=== PATIENT | male | born 1940 | race Caucasian/White ===

== ENCOUNTER 2017-09-10 13:25 | Observation (INO) ==
--- NOTE | 2017-09-10 13:49 | EKG ---
[address] [address] Measurements Intervals [place] Rate: 80 P: 39 AK: 128 QRS: 43 QRSD: 86 T: 67 QT: 394 QTc: 431 Interpretive Statements SINUS RHYTHM NONSPECIFIC ST & T-WAVE ABNORMALITY No previous ECG available for comparison Electronically Signed On 09-10-17 17:26:56 MDT by Deon Gill [email or web address]
[2017-09-10] MEDS ORDERED: Sodium Chloride 0.9% 1,000 ML PRIMARY IV ONE (14:23)
[2017-09-10] MEDS ORDERED: IPRATROPIUM/ALBUTEROL SULFATE 3 ML NEB NEB ONE (14:23)
[2017-09-10] MEDS ORDERED: predniSONE Tab 20 MG TAB PO ONE (14:23)
[2017-09-10] MEDS ORDERED: methylPREDNISolone 125 MG/2 ML VIAL IVP ONE (14:28)
[2017-09-10 15:07] LABS: BASOPHILS # (AUTO) 0.05 10*3/UL; BASOPHILS % (AUTO) 0.7 % (0-1); EOSINOPHILS # (AUTO) 0.19 10*3/UL; EOSINOPHILS % (AUTO) 2.5 % (0-8); Hematocrit [HCT] 38.1 % (42.0-52.0); Hemoglobin [HGB] 13.1 g/dL (14.0-18.0); LYMPHOCYTES # (AUTO) 1.42 10*3/uL; MEAN CORPUSCULAR HEMOGLOBIN 30.8 PG (27-31); MEAN CORPUSCULAR HGB CONC 34.4 g/dL (33-37); MEAN CORPUSCULAR VOLUME 89.6 FL (80-90); MEAN PLATELET VOLUME 9.3 FL (7.4-12.2); MONOCYTES # (AUTO) 0.62 10*3/UL (0.3-0.8); MONOCYTES % (AUTO) 8.1 % (5-15); NEUTROPHILS # (AUTO) 5.34 10*3/UL; RED BLOOD COUNT 4.25 10^6/uL (4.70-6.10)
[2017-09-10 15:18] LABS: BLOOD UREA NITROGEN 18 mg/dL (7-22); SERUM ALBUMIN 3.9 g/dL (3.5-4.8)
--- NOTE | 2017-09-10 15:24 | DI ---
PA /LATERAL CHEST, 09/10/2017 2:23 PM : Clinical History: Dyspnea. Previous Exam: None at this facility. There is no acute soft tissue or bony abnormality. There is mild cardiomegaly. CHF is difficult to as sess because of underlying interstitial disease. There is no acute infiltrate or effusion. A moderate size hiatal hernia is present. There are no pulmonary nodules. Readin. There is a diffuse chronic interstitial pattern present bilaterally. No acute infiltrate or effus ion is present. 2. There is mild cardiomegaly. Assessment for CHF is difficult because of the underlying interstitia l disease. 3. Moderate sized hiatal hernia.
[2017-09-10 15:31] LABS: PLATELET MORPHOLOGY COMMENT NORMAL MORPHOLOGY (NORM); RBC MORPHOLOGY COMMENT NORMAL MORPHOLOGY (NORM); WBC MORPHOLOGY COMMENT NORMAL MORPHOLOGY (NORM)
[2017-09-10 15:49] LABS: VENOUS PH 7.41 (7.32-7.42)
[2017-09-10] MEDS ORDERED: FUROSEMIDE 10 MG/1 ML - 4 ML IVP ONE (16:04)
[2017-09-10 17:24] LABS: BILIRUBIN,URINE NEGATIVE (NEG); CLARITY,URINE CLEAR (CLEAR); COLOR,URINE YELLOW (Y); GLUCOSE, URINE (UA) NEGATIVE (NEG); OCCULT BLOOD,URINE SMALL (NEG); PH,URINE 6.5 (5.0-8.5); PROTEIN,URINE NEGATIVE (NEG); UROBILINOGEN,URINE 0.2 EU/dL (0.2)
[2017-09-10 17:33] LABS: URINE SAMPLE TYPE CLEAN CATCH URINE
--- NOTE | 2017-09-10 19:13 | PDOC ---
HPI - History of Present Illness Date of Service: 09/10/17 Time of Service: 19:00 Chief Complaint: Shortness of breath of about 1 week duration History of Present Illness: This is a 77 years old male with medical history significant for history of hypertension, paroxysmal atrial fibrillation, BPH and history of pulmonary fibrosis who presented to the hospital with history of shortness of breath that is being going on for about a week. It is progressive with exertion. Denied PND's and denied orthopnea. Because of the shortness of breath he came into the ER x-ray and CT showed pulmonary fibrosis he also had an elevation of his BNP was giving Lasix and steroid and was admitted. He was hypoxic when he came into the ER about a84 and he needed 4 L of oxygen. Currently he said he feels better his oxygen sat numbers seems to be better and he feels the shortness of breath also improved. He said he was on oxygen mainly at night but was discontinued back in December. He lives in [place] been followed up by a production planner scheduler and floor nurse. Past Medical History Medical History: 1. Hypertension. 2. History of A. fib. 3. History of pulmonary fibrosis. 4. BPH. 5. Hyperlipidemia. 6. Hiatal hernia Surgical History: History of appendectomy. History of hernia surgery Family History: Reviewed an Not Pertinent Past Social History: He lives in [place] and he's been here since Saturday and plan to go back home on Saturday. He used to smoke and quit in 1978. Now on some of maybe smokes the cigar. Drinks occasionally. No drugs. In the Past 12 Months, Have Used or Abuse Any of the Following Substance: None Alcohol Use: Occasionally Medication / Allergies Home Medications: Home Medications 3 Medication Instructions Recorded Confirmed Type Acetaminophen [Tylenol] 1,000 mg PO QHS PRN 09/10/17 09/10/17 History Ascorbic Acid [Vitamin C] 1,000 mg PO DAILY 09/10/17 09/10/17 History Aspirin 81 mg PO DAILY 09/10/17 09/10/17 History Cholecalciferol [Vitamin D] 1,000 unit PO DAILY 09/10/17 09/10/17 History Lisinopril 2.5 mg PO DAILY 09/10/17 09/10/17 History Loratadine [Claritin] 10 mg PO DAILY 09/10/17 09/10/17 History Lovastatin 20 mg PO DAILY 09/10/17 09/10/17 History Lysine 500 mg PO DAILY 09/10/17 09/10/17 History Metoprolol Tartrate 12.5 mg PO BID 09/10/17 09/10/17 History Omeprazole 20 mg PO DAILY 09/10/17 09/10/17 History Psyllium Husk [Metamucil] 2 cap PO DAILY 09/10/17 09/10/17 History Rivaroxaban [Xarelto] 20 mg PO DAILY 09/10/17 09/10/17 History Terazosin HCl 4 mg PO QHS 09/10/17 09/10/17 History Allergies/Adverse Reactions: Allergies 3 Allergy/AdvReac Type Severity Reaction Status Date / Time Sulfa (Sulfonamide AdvReac ITCHING Verified 09/11/17 06:59 Antibiotics) Review of Systems - Review of Systems All Systems: Reviewed & No Additional Complaints Except as Stated Exam - Vitals Vital Signs: Vital Signs Temperature 97.3 F Temperature Source Temporal Artery Scan Pulse Rate [Apical] 80 Pulse Rate [Pulse Oximeter] 84 Pulse Rate 86 Respiratory Rate 16 Blood Pressure [Left Arm] 127/56 Blood Pressure 149/70 Pulse Ox 96 Oxygen Flow Rate 4 Oxygen Delivery Method Nasal Cannula Height 5 ft 9 in Weight 165 lb 4 oz - General General Appearance: No Acute Distress, Cooperative - Head Head Exam: Normal Inspection - Eye Eye Exam: POSITIVE: Normal Appearance - ENT ENT Exam: POSITIVE: Normal Exam - Neck Neck Exam: Normal Inspection - Respiratory Additional Respiratory Exam Details: Bilateral crackles at lower third of the lung bases - Cardiovascular Cardiovascular Exam: POSITIVE: RRR - GI/Abdominal GI/Abdominal Exam: POSITIVE: Normal Bowel Sounds, Non Tender, Non Distended, No Organomegaly - Rectal Rectal Exam: POSITIVE: Deferred - External Exam: POSITIVE: Deferred Exam: POSITIVE: Deferred - Extremities Extremities Exam: POSITIVE: Normal Inspection - Back Back Exam: POSITIVE: Normal Inspection - Neurological Neurological Exam: POSITIVE: Alert, Oriented x 3, CN II-XII Intact, No Facial Droop, Speech Intact / Clear, Moves All Extremities Equally - Psychiatric Psychiatric Exam: POSITIVE: Normal Affect Results - Labs CBC and BMP: 09/10/17 15:03 09/10/17 15:03 - EKG Data -: EKG Interpreted by Me Rate: Normal EKG Shows Normal: Sinus Rhythm (EKG showed nonspecific ST changes) - Imaging Status: Report Reviewed by Me (Chest X ray 1. There is a diffuse chronic interstitial pattern present bilaterally. No acute infiltrate or effusion is present. 2. There is mild cardiomegaly. Assessment for CHF is difficult because of the underlying interstitial disease. 3. Moderate sized hiatal hernia. CT chest pending put to me showed bilateral effusion with interstitial changes) Assessment and Plan - Patient Problems (1) Shortness of breath Current Visit: Yes Status: Acute Comment: Looks predominantly secondary to the pulmonary fibrosis. He is already on oxygen. He was giving steroid in the ER. I think we'll continue with oxygen continue with Lasix and will order an echocardiogram for him tomorrow. May speak with his floor nurse and see his opinion about continuing steroid or not. Code(s): R06.02 - Shortness of breath (2) Paroxysmal A-fib Current Visit: Yes Status: Acute Comment: Continue metoprolol and Xarelto. Code(s): I48.0 - Paroxysmal atrial fibrillation (3) Hypertension Current Visit: Yes Status: Acute Comment: Continue lisinopril Code(s): I10 - Essential (primary) hypertension (4) BPH (benign prostatic hyperplasia) Current Visit: Yes Status: Acute Comment: Continue terazosin Code(s): N40.0 - Benign prostatic hyperplasia without lower urinary tract symptoms
[2017-09-10] MEDS ORDERED: LIDOCAINE W/ SODIUM BICARB 0.5 ML SYR SUBD PRN (19:50)
[2017-09-10] MEDS ORDERED: CALCIUM CARBONATE 500 MG (TUMS) CHEWABLE TABLET PO PRN (19:50)
[2017-09-10] MEDS ORDERED: Rivaroxaban Tab 10 MG TAB PO ONE (20:20)
[2017-09-10] MEDS: Metoprolol TARTRATE Tab 25 MG TAB PO SCH (20:21)
[2017-09-10] MEDS ORDERED: TERAZOSIN 2 MG PO SCH (21:00)
--- NOTE | 2017-09-10 22:41 | DI ---
CT ANGIOGRAM OF THE CHEST, 09/10/2017 4:03 PM : Clinical History: Dyspnea. Elevated D-dimer test. Previous Exam: None at this facility. Scans are performed from the base of the neck to the lower lung bases with IV contrast. 65 mL of Isov ue 370 was injected IV. Proprietary automated bolus tracking software was used to verify the timing o f the injection. The base of the neck and thoracic inlet are normal. There are no abnormal axillary, supraclavicular, or hilar nodes. There are multiple borderline enlarged lymph nodes in the mediastinum with one right- sided mediastinal lymph node measuring 22 x 15 x 15 mm. There is right atrial and ventricular dilatat ion with left atrial enlargement. The apex of the left ventricle is blunted with low density tissue i n the endocardium of the apex. These changes are suspicious for a previous subendocardial infarction. Extensive vascular calcifications are present in all of the entire length of the LAD and the proxima l half of the left circumflex artery and almost all of the right coronary artery. There is also a eliseo cified plaque probably in the pericardium on the left side suggesting asbestosis. There is marked pul monary arterial hypertension without evidence of pulmonary embolism or pulmonary embolism with infarc tion. The trachea and the right and left mainstem bronchi are markedly dilated. There is no acute lob ar pneumonia but there are patchy areas of alveolar infiltrates bilaterally primarily in the posterio r aspect of the lungs. Aspiration is not certain as being the etiology for these patchy densities. Ke r[place] A and B lines are present and with the cardiomegaly and pleural effusions, some of the interstit ial changes may be secondary to CHF as well as 2 chronic interstitial pulmonary fibrosis. Bullae are present in the upper lobes. There are punctate calcifications in the spleen consistent with prior exp osure to either TB or histoplasmosis. The spleen is otherwise normal as are the adrenal glands. The l imited views of the pancreas and liver are also normal. There is a large hiatal hernia. READIN. There is marked pulmonary arterial hypertension without evidence of pulmonary embolism. Marked di latation of the right atrium and right ventricle is present along with marked dilatation of the left atrium. The left ventricle is blunted in the apical region with low density tissue in the region of t he endocardium raising the possibility of a prior subendocardial infarct in the distal LAD distributi on. 2. There is evidence of chronic interstitial lung disease and with the presence of bilateral pleural effusions, this patient may have CHF superimposed on the interstitial pattern. There are patchy dens ities in both lungs of uncertain etiology. The bronchi are markedly dilated. 3. There is mild adenopathy involving the mediastinum without hilar adenopathy. 4. Calcification of the left side of the pericardium suggesting asbestosis. Punctate calcifications are present in the spleen consistent with previous exposure to either TB or histoplasmosis. 5. Extensive 3 vessel coronary artery disease.
--- NOTE | 2017-09-11 01:29 | PDOC ---
Dyspnea HPI - General Chief Complaint: Respiratory Complaint Stated Complaint: SHORTNESS OF BREATH Date Seen by Provider: 09/10/17 Time Seen by Provider: 13:45 Source: POSITIVE: Patient, Spouse Exam Limitations: POSITIVE: No limitations Treatment Prior to Arrival: REPORTS: None Nurse's Notes Reviewed & Considered: Yes - History of Present Illness Initial Comments: The patient is a 77-year-old male who lives in [place]. He has are in [place] [facility]. He states that for the past 3-4 days he has had progressive dyspnea with exertion. He states that today he can walk only about 100 yards without having to stop to rest. He denies any chest or abdominal pain. No fevers or cough. Patient states that he has a history of atrial fibrillation and he states he has "2 leaky heart valve" he states that he sees a diamond sizer and sorter in [place] and that the diamond sizer and sorter has informed him that his "valves are bad enough to do anything at this time". He also has a history of "some type of lung problem" and he also sees a project officer in [place] twice a year. No hemoptysis. Patient is not on oxygen at home. On the patient's arrival to the emergency room his oxygen saturation was 81% on room air. On 4 L his oxygen saturation was 93%. Body Location Affected: REPORTS: Chest (Dyspnea) Timing: REPORTS: Gradual, Getting Worse Duration: >1 week Severity: Moderate Quality: REPORTS: Other (Patient denies any pain anywhere) Initiating Event: DENIES: Upper Respiratory Illness, Out of Medications, Sports , Exercise, Aspiration, Choking, Allergy, Exposure - Smoke, Exposure - Mold, Exposure - Other Allergen Context: REPORTS: Activity Exacerbated By: REPORTS: Exertion Associated Symptoms: DENIES: Fever, Chills, Sweating, Chest Pain, Chest Discomfort, Left Chest, Right Chest, Central Chest, Chest Heaviness, Chest Tightness, Painful Breathing, Radiation to Back, Radiation to Jaw, Radiation to Arm, Bloody Cough, Productive Cough, Heart Racing, Leg Pain, Calf Pain, Ankle Swelling, Leg Swelling, Dizziness, Light-Headedness, Anxiety, Tingling - Hands, Tingling - Face, Muscle Spasms - Hands, Muscle Spasms - Feet Similar Symptoms Previously: No Recently seen/treated/hospitalized: No Any Prior Injuries Related to Current Complaint?: No - Patient Home Medications Home Medications: Home Medications Acetaminophen [Tylenol] 1,000 mg PO QHS PRN 09/10/17 Ascorbic Acid [Vitamin C] 1,000 mg PO DAILY 09/10/17 Aspirin 81 mg PO DAILY 09/10/17 Cholecalciferol [Vitamin D] 1,000 unit PO DAILY 09/10/17 Lisinopril 2.5 mg PO DAILY 09/10/17 Loratadine [Claritin] 10 mg PO DAILY 09/10/17 Lovastatin 20 mg PO DAILY 09/10/17 Lysine 500 mg PO DAILY 09/10/17 Metoprolol Tartrate 12.5 mg PO BID 09/10/17 Omeprazole 20 mg PO DAILY 09/10/17 Psyllium Husk [Metamucil] 2 cap PO DAILY 09/10/17 Rivaroxaban [Xarelto] 20 mg PO DAILY 09/10/17 Terazosin HCl 4 mg PO QHS 09/10/17 - Patient Allergies Allergies/Adverse Reactions: Allergies 3 Allergy/AdvReac Type Severity Reaction Status Date / Time Sulfa (Sulfonamide AdvReac ITCHING Verified 09/10/17 18:55 Antibiotics) Past Medical History - heen HEENT History: Other (please comment) Additional HEENT History: WEARS GLASSES Cardiovascular History: Hypertension, Arrhythmia, Valvular Heart Disease, Hyperlipidemia, Other (please comment) Additional Cardiovasular History: ATRIAL FIBRILLATION Respiratory History: COPD Gastrointestinal History: GERD Genitourinary History: Denies History Endocrine History: Denies History Musculoskeletal History: Denies History Prosthesis or Implant: No Neurological History: Denies History Blood Disorders: Denies History Psychiatric History: Denies History History of Sexually Transmitted Diseases: No Male Reproductive History: BPH Cancer History: Denies History In Past Year Been Physically Harmed or Verbally Threatened: No History of MDRO: No History of Other Communicable Diseases: No Tobacco Use: Never Smoker Type of alcohol normally used: Hard Liquor In the Past 12 Months, Have Used or Abuse Any Substance: None Previous Surgical History: Yes Type / Date of Surgery: APPENDECTOMY, HERNIA REPAIR Anesthesia Reactions: No Malignant Hyperthermia: No Family History of Malignant Hyperthermia: No Significant Family History: No pertinent family hx Past Medical History Reviewed: Reviewed - No Changes ROS - Limitations ROS Limitations: No Limitations Constitution: REPORTS: Denies Symptoms Cardiovascular: REPORTS: Denies Cardiac Symptoms Respiratory: REPORTS: Shortness Of Breath Neurological: REPORTS: Denies Neuro Symptoms Gastrointestinal: REPORTS: Denies GI Symptoms Endocrine: REPORTS: Denies Symptoms Musculoskeletal: REPORTS: Denies MS Symptoms Genitourinary: REPORTS: Denies Symptoms Eyes: REPORTS: Denies Symptoms ENT: REPORTS: Denies Symptoms Skin: REPORTS: Denies Skin Symptoms Lympathic: REPORTS: Denies Lympathic Symptoms Immunologic: POSITIVE: Denies Symptoms Psychiatric: POSITIVE: Denies Psych Symptoms Dyspnea Physical Exam - General Appearance General Appearance: REPORTS: Alert, Cooperative, No Acute Distress, No Evidence of Trauma - HEENT HEENT: POSITIVE: Head Inspection Nml, Eyes Inspection Nml, Ears Inspection Nml, Nose Inspection Nml, Oral/Dental Inspect. Nml, Pharynx Inspect. Nml, PERRL, EOMI - Neck Neck: REPORTS: Normal Inspection, No Carotid Bruit - Respiratory Respiratory: REPORTS: No Respiratory Distress, No Pleuritic Chest Pain, Speaks Full Sentences, No Pain on Inspiration, Rales. DENIES: Breath Sounds Normal ( Diffuse rales/crackles), Respiratory Distress, Fatigue - Cardiovascular Cardiovascular: REPORTS: Regular Rate and Rhythm, Equal Pulses, Strong Pulses, No Murmur, No Gallop, No Friction Rub, No JVD, Murmur (1/6 systolic ejection murmur over the precordium), Friction Rub, Miky's Crunch, Bilat BPs Asymmetrical. DENIES: Heart Sounds Normal (Grade 1/6 systolic ejection murmur over the precordium), Irregularly Irreg Rhythm, Tachycardia, Bradycardia, Occasional Extrasystoles, Frequent Extrasystoles, JVD Present, S3 Gallop, S4 Gallop Peripheral Pulses: Radial (R): 2+, Radial (L): 2+ Murmur: Systolic: Grade 1 - Abdomen Abdomen: Soft: (All Quadrants), Normal Bowel Sounds: (All Quadrants), Denies Tenderness: (All Quadrants), No Splenomegaly: (All Quadrants), No Hepatomegaly: (All Quadrants), No Guarding: (All Quadrants), No Rebound: (All Quadrants), No Palpable Pulse: (All Quadrants), No Palpabale Mass: (All Quadrants), No Distention: (All Quadrants), No Rigidity: (All Quadrants) - Skin Skin: REPORTS: Intact, Normal For Race, Warm, Dry, No Rash - Extremities Extremity: Non-Tender: (All Extremities), Normal ROM: (All Extremities), Normal Inspection: (All Extremities) - Neurological / Psychological Neurological: POSITIVE: Affect Apporpriate, Oriented X3, lace roller Normal As Tested, Motor Normal, Sensation Normal Dyspnea Progress - Results Reviewed by me Xrays/CTs/US Reviewed by me: Yes Discussed with Radiologist: Yes Radiology Findings: Chest x-ray shows diffuse interstitial pattern. CTA of the chest shows dilated right atrium and mitral valve disease with pulmonary fibrosis and congestive heart failure. Lab Results Reviewed by Me: Yes (BNP PE 1190; troponin 0.013 d-dimer 0.62) CBC and BMP: 09/10/17 15:03 09/10/17 15:03 Lab Results:: Laboratory Results 3 09/10/17 09/10/17 09/10/17 15:03 15:03 15:03 WBC 7.63 RBC 4.25 L Hgb 13.1 L Hct 38.1 L MCV 89.6 MCH 30.8 MCHC 34.4 RDW Std Deviation 44.0 RDW Coeff of Eder 13.8 Plt Count 235 MPV 9.3 Immature Gran % (Auto) 0.1 Neut % (Auto) 70.0 Lymph % (Auto) 18.6 [place] % (Auto) 8.1 Eos % (Auto) 2.5 Baso % (Auto) 0.7 Immature Gran # (Auto) 0.01 Neut # (Auto) 5.34 Lymph # (Auto) 1.42 [place] # (Auto) 0.62 Eos # (Auto) 0.19 Baso # (Auto) 0.05 WBC Morphology Comment Normal morphology Plt Morphology Comment Normal morphology RBC Morph Comment Normal morphology D-Dimer VBG pH VBG pCO2 VBG HCO3 VBG Base Excess Sodium Potassium Chloride Carbon Dioxide Anion Gap BUN Creatinine BUN/Creatinine Ratio Glucose Calculated Osmolality Calcium Total Bilirubin AST ALT Alkaline Phosphatase Troponin I 0.013 C-Reactive Protein 3.1 H NT-Pro-B Natriuret Pep 1190 H Total Protein Albumin Globulin Albumin/Globulin Ratio Ur Collection Type Urine Color Urine Clarity Urine pH Ur Specific [place] Urine Protein Urine Glucose (UA) Urine Ketones Urine Occult Blood Urine Nitrate Urine Bilirubin Urine Urobilinogen Ur Leukocyte Esterase Urine RBC Urine WBC Ur Squamous Epith Cells Ur Renal Epithelial Cell Urine Crystals Urine Bacteria Urine Casts Urine Mucus Urine Trichomonas Urine Yeast Ur Culture Indicated? 3 09/10/17 09/10/17 09/10/17 15:03 15:03 15:12 WBC RBC Hgb Hct MCV MCH MCHC RDW Std Deviation RDW Coeff of Eder Plt Count MPV Immature Gran % (Auto) Neut % (Auto) Lymph % (Auto) [place] % (Auto) Eos % (Auto) Baso % (Auto) Immature Gran # (Auto) Neut # (Auto) Lymph # (Auto) [place] # (Auto) Eos # (Auto) Baso # (Auto) WBC Morphology Comment Plt Morphology Comment RBC Morph Comment D-Dimer 0.62 H VBG pH 7.41 VBG pCO2 35 L VBG HCO3 22 VBG Base Excess -3 L Sodium 142 Potassium 3.6 L Chloride 108 Carbon Dioxide 22 L Anion Gap 12 BUN 18 Creatinine 0.8 BUN/Creatinine Ratio 22.50 H Glucose 144 H Calculated Osmolality 298.0 H Calcium 8.7 Total Bilirubin 0.7 AST 36 ALT 26 Alkaline Phosphatase 54 Troponin I C-Reactive Protein NT-Pro-B Natriuret Pep Total Protein 7.0 Albumin 3.9 Globulin 3.1 Albumin/Globulin Ratio 1.20 L Ur Collection Type Urine Color Urine Clarity Urine pH Ur Specific [place] Urine Protein Urine Glucose (UA) Urine Ketones Urine Occult Blood Urine Nitrate Urine Bilirubin Urine Urobilinogen Ur Leukocyte Esterase Urine RBC Urine WBC Ur Squamous Epith Cells Ur Renal Epithelial Cell Urine Crystals Urine Bacteria Urine Casts Urine Mucus Urine Trichomonas Urine Yeast Ur Culture Indicated? 3 09/10/17 16:50 WBC RBC Hgb Hct MCV MCH MCHC RDW Std Deviation RDW Coeff of Eder Plt Count MPV Immature Gran % (Auto) Neut % (Auto) Lymph % (Auto) [place] % (Auto) Eos % (Auto) Baso % (Auto) Immature Gran # (Auto) Neut # (Auto) Lymph # (Auto) [place] # (Auto) Eos # (Auto) Baso # (Auto) WBC Morphology Comment Plt Morphology Comment RBC Morph Comment D-Dimer VBG pH VBG pCO2 VBG HCO3 VBG Base Excess Sodium Potassium Chloride Carbon Dioxide Anion Gap BUN Creatinine BUN/Creatinine Ratio Glucose Calculated Osmolality Calcium Total Bilirubin AST ALT Alkaline Phosphatase Troponin I C-Reactive Protein NT-Pro-B Natriuret Pep Total Protein Albumin Globulin Albumin/Globulin Ratio Ur Collection Type Clean catch urine Urine Color Yellow Urine Clarity Clear Urine pH 6.5 Ur Specific [place] 1.010 Urine Protein Negative Urine Glucose (UA) Negative Urine Ketones Negative Urine Occult Blood Small H Urine Nitrate Negative Urine Bilirubin Negative Urine Urobilinogen 0.2 Ur Leukocyte Esterase Negative Urine RBC 1-3 Urine WBC None Ur Squamous Epith Cells None Ur Renal Epithelial Cell None Urine Crystals None Urine Bacteria None Urine Casts None Urine Mucus None Urine Trichomonas None Urine Yeast None Ur Culture Indicated? Culture not set EKG Interpreted/Reviewed By Me:: Yes (normal) EKG Interpretation:: POSITIVE: Normal Sinus Rhythm, Normal Rate, Normal Intervals, Normal [place], Normal QRS, Normal ST/T - Patient's Progress Pain Medication Addressed: POSITIVE: Not Applicable School/Work Release Addressed: POSITIVE: Not Applicable Re-Examine Time: 17:40 Re-Examine Comment: Patient advised of his hypoxia, probably on the basis of congestive heart failure and pulmonary fibrosis. Status: POSITIVE: Unchanged, Re-Examined Air Movement: POSITIVE: Fair - Consult Consult (If Yes, Name of Consulting MD & Time Called): Yes (Dr. Jarrell, 1960) Consulting MD will see pt:: POSITIVE: [facility] Admit Counseled: POSITIVE: Patient, Family, RE: Lab Results, RE: Radiology Results, RE : DX, RE: Need for F/U Patient Care Time - Estimated PCT Patient Care Time (In Minutes): 65 Vital Signs - VS Reviewed Vital Signs Reviewed: Yes Discharge Clinical Impression: Congestive heart failure, Pulmonary fibrosis, Hypoxia Discharge Disposition: Admit to Inpatient Condition: Stable Date Decision to Admit to Inpatient: 09/10/17 Time Decision to Admit to Inpatient: 17:50
[2017-09-11] MEDS ORDERED: FUROSEMIDE 10 MG/1 ML - 2 ML VIAL IVP SCH ×2 (07:00→13:00)
[2017-09-11] MEDS ORDERED: OMEPRAZOLE 20 MG CAPSULE PO SCH (07:00)
[2017-09-11 08:23] LABS: BLOOD UREA NITROGEN 21 mg/dL (7-22); BUN/CREATININE RATIO 26.25 (6-20)
[2017-09-11] MEDS ORDERED: predniSONE Tab 20 MG TAB PO SCH (09:00)
[2017-09-11] MEDS ORDERED: PANTOPRAZOLE 40 MG TABLET PO SCH (09:00)
[2017-09-11] MEDS ORDERED: LORATADINE 10 MG TABLET PO PRN (09:00)
[2017-09-11] MEDS ORDERED: LISINOPRIL 5 MG TABLET PO SCH (09:00)
[2017-09-11] MEDS: Metoprolol TARTRATE Tab 25 MG TAB PO SCH (09:13)
[2017-09-11] MEDS ORDERED: POTASSIUM CHLORIDE 20 MEQ TAB PO SCH (09:15)
--- NOTE | 2017-09-11 16:13 | DCSUMMARY ---
Hospitalization Summary Admit Date: 09/10/2017 Discharge Date: 09/11/17 Hospital Course: Discharge diagnoses 1. Shortness of breath likely multifactorial 2. interstitial lung disease 3. History of hypertension 4. History of paroxysmal A. fib 5. History of BPH 6. Hiatal hernia 7. Hyperlipidemia 8. Extensive vascular calcifications are present in all of the entire length of the LAD and the proximal half of the left circumflex artery and almost all of the right coronary artery Hospital course This is a 77 years old male with medical history significant for history of hypertension, paroxysmal A. fib, BPH and history of pulmonary fibrosis who presented to the hospital with history of shortness of breath that has been going on for about a week. The shortness of breath is progressive with exertion. He denied PND's and denied orthopnea. He denied fever and denied cough. Because of the shortness of breath he came into the ER a chest x-ray and CT showed pulmonary fibrosis, pleural effusion and he also had elevation of his BNP. He was given Lasix and steroid and was admitted. He was hypoxic when he came into the ER and he needed 4 L of oxygen. By the time I saw him he was feeling better his oxygen sats was stable at 4 l/ min and he felt the shortness of breath also improved. He said before he was mainly on oxygen at night but that was discontinued back in December. He lives in [place] and he's been followed by slubber frame changer and a branch credit counselor there. we thought the shortness of breath is probably multifactorial but predominantly felt maybe secondary to his pulmonary disease. We did continue with his Lasix and did order an echocardiogram for him which showed per my discussion with the pile driving technician normal ejection fraction, tricuspid regurgitation and diastolic dysfunction. I tried to speak with his branch credit counselor and first left a message. Did not get a call back so I called again apparently he is not at the office and not at the hospital. Left a message to speak to one of his partners. That was late in the afternoon so I decided to send the CT to the branch credit counselor in [place] who looked at it to see whether the patient needed more testing or different course of treatment. The Sales Advisor did not have a previous CT to compre to as the patient is not from here, she thought probably he need to have a bronchoscopy. I did speak to the patient about transfer somewhere else in [place] however he declined. Symptomatically he felt better and he wanted to go home. So we discharged on steroid, oxygen and Lasix and and follow-up with his branch credit counselor as soon as he is back home. Then I did get a call back from the branch credit counselor television antenna installer for his regular branch credit counselor he reviewed his chart and he thought the plan seems to be reasonable to continue steroid and Lasix and oxygen and follow-up with his physician as soon as possible as an outpatient. I also discussed with him the issue of putting the patient on antibiotics or not. He thought that since the probability of an infection seems to be low it's reasonable to use this course of treatment now. His blood culture was negtaive, he did not have fever no cough, he was not tachycardic, no WBC and CRP was minimally elevated. I did emphasize to the patient that he needs follow-up with his physician. I did explain to him the course of his condition is unpredictable things may deteriorate and he may need further testing done so its better for him to be back home where his branch credit counselor and slubber frame changer are. He understood that and he plans to go home in the morning. Laboratory Results 09/10/17 09/11/17 Range/Units 16:50 08:00 Sodium 141 (135-145) meq/L Potassium 3.5 L (3.8-5.2) meq/L Chloride 106 (98-112) meq/L Carbon Dioxide 19 L (23-33) meq/L Anion Gap 16 (5-20) BUN 21 (7-22) mg/dL Creatinine 0.8 (0.70-1.50) mg/dL BUN/Creatinine Ratio 26.25 H (6-20) Glucose 189 H (78-110) mg/dL Calculated Osmolality 299.0 H (267-292) mOsm/kg Calcium 9.3 (8.7-10.7) mg/dL NT-Pro-B Natriuret Pep 1020 H (0-450) PG/ML Ur Collection Type Clean catch urine Urine Color Yellow (Y) Urine Clarity Clear (CLEAR) Urine pH 6.5 (5.0-8.5) Ur Specific [place] 1.010 (1.005-1.030) Urine Protein Negative (NEG) mg/dl Urine Glucose (UA) Negative (NEG) mg/dL Urine Ketones Negative (NEG) Urine Occult Blood Small H (NEG) Urine Nitrate Negative (NEG) Urine Bilirubin Negative (NEG) Urine Urobilinogen 0.2 (0.2) EU/dL Ur Leukocyte Esterase Negative (NEG) Urine RBC 1-3 (NONE) /hpf Urine WBC None (NONE) Ur Squamous Epith Cells None (NONE) Ur Renal Epithelial Cell None (NONE) Urine Crystals None Urine Bacteria None (NONE) Urine Casts None (NONE) Urine Mucus None (NONE) Urine Trichomonas None (NONE) Urine Yeast None (NONE) Ur Culture Indicated? Culture not set Discharge instruction Diet low-salt Activity as started Medications Current Medication(s) 3 Medication Instructions Recorded Confirmed Type Acetaminophen [Tylenol] 1,000 mg PO QHS PRN 09/10/17 09/10/17 History Ascorbic Acid [Vitamin C] 1,000 mg PO DAILY 09/10/17 09/10/17 History Aspirin 81 mg PO DAILY 09/10/17 09/10/17 History Cholecalciferol [Vitamin D] 1,000 unit PO DAILY 09/10/17 09/10/17 History Lisinopril 2.5 mg PO DAILY 09/10/17 09/10/17 History Loratadine [Claritin] 10 mg PO DAILY 09/10/17 09/10/17 History Lovastatin 20 mg PO DAILY 09/10/17 09/10/17 History Lysine 500 mg PO DAILY 09/10/17 09/10/17 History Metoprolol Tartrate 12.5 mg PO BID 09/10/17 09/10/17 History Omeprazole 20 mg PO DAILY 09/10/17 09/10/17 History Psyllium Husk [Metamucil] 2 cap PO DAILY 09/10/17 09/10/17 History Rivaroxaban [Xarelto] 20 mg PO DAILY 09/10/17 09/10/17 History Terazosin HCl 4 mg PO QHS 09/10/17 09/10/17 History Furosemide [Lasix] 20 mg PO BID #60 tab 09/11/17 Rx Potassium Chloride [Klor-Con] 20 meq PO BID #60 tab 09/11/17 Rx Prednisone 40 mg PO DAILY #30 tab 09/11/17 Rx Follow-up with his PCP once he is back home and with his branch credit counselor and slubber frame changer once he is back home Condition at discharge was stable for discharge Exam - Vitals Vital Signs: Vital Signs Temperature 97.8 F Temperature Source Temporal Artery Scan Pulse Rate [Apical] 80 Pulse Rate [Pulse Oximeter] 81 Pulse Rate 82 Respiratory Rate 20 Blood Pressure [Left Arm] 132/55 Blood Pressure 149/70 Pulse Ox 93 Oxygen Flow Rate 4 Oxygen Delivery Method Nasal Cannula Height 5 ft 9 in Weight 165 lb 4 oz - General General Appearance: No Acute Distress, Cooperative - Head Head Exam: Normal Inspection - Eye Eye Exam: POSITIVE: Normal Appearance - ENT ENT Exam: POSITIVE: Normal Exam - Neck Neck Exam: Normal Inspection - Respiratory Additional Respiratory Exam Details: Bilateral crackles at the lung bases - Cardiovascular Cardiovascular Exam: POSITIVE: RRR - GI/Abdominal GI/Abdominal Exam: POSITIVE: Normal Bowel Sounds, Non Tender, Non Distended, Soft, No Organomegaly - Rectal Rectal Exam: POSITIVE: Deferred - External Exam: POSITIVE: Deferred - Extremities Extremities Exam: POSITIVE: Normal Inspection - Back Back Exam: POSITIVE: Normal Inspection - Neurological Neurological Exam: POSITIVE: Alert, Oriented x 3, CN II-XII Intact, No Facial Droop, Moves All Extremities Equally - Psychiatric Psychiatric Exam: POSITIVE: Normal Affect - Integumentary Integumentary Exam: POSITIVE: Normal Color Patient Problems - Patient Problem List (1) Shortness of breath Status: Acute Code(s): R06.02 - Shortness of breath Category: Medical (2) Paroxysmal A-fib Status: Acute Code(s): I48.0 - Paroxysmal atrial fibrillation Category: Medical (3) Hypertension Status: Acute Code(s): I10 - Essential (primary) hypertension Category: Medical (4) BPH (benign prostatic hyperplasia) Status: Acute Code(s): N40.0 - Benign prostatic hyperplasia without lower urinary tract symptoms Category: Medical
[2017-09-11] MEDS ORDERED: Rivaroxaban Tab 10 MG TAB PO SCH (17:00)
== END 2017-09-11 17:17 | disposition home or self-care (01) ==
LOC: ER 13:25 → MED/SURG 13:25
PROVIDERS: ADMIT Internal Medicine; ATTEND Internal Medicine